=== PATIENT | female | born 1945 | race Caucasian/White ===

== ENCOUNTER 2020-11-09 16:28 | Emergency (ER) | payer MEDICARE, SELFPAY ==
[2020-11-09 16:32] VITALS: BP 103/60; PULSE 110; RESP 18; TEMP 37.1; O2SAT 93
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
[2020-11-09 17:22] LABS: Abs Immature Grans 0.03 10^3/uL (0.0-0.06); Absolute Eosinophil Count 0.05 10^3/uL (0.0-0.7); Absolute Lymphocyte Count 0.77 10^3/uL (1.2-3.4); Absolute Monocyte Count 0.49 10^3/uL (0.1-0.8); Absolute Neutrophil Count 9.07 10^3/uL (1.2-6.7); Eosinophils % 0.5; HCT 40.7 % (36.0-46.0); HGB 13.3 g/dL (11.2-15.7); Immature Grans % 0.3; Lymphocytes % 7.4; MCH 29.4 pg (27.0-33.0); MCHC 32.7 % (32.0-36.0); MCV 89.8 fL (80-95); MPV 8.8 fL (8.0-11.0); Monocytes % 4.7; Neutrophils % 87.1; Nucleated RBC 0 %; Platelet Count 270 10^3/uL (130-400); RBC 4.53 10^6/uL (3.93-5.22); RDW 12.6 % (11.7-14.6); RDW-SD 41.5 fL; WBC 10.41 10^3/uL (4.4-10.8)
[2020-11-09 17:33] LABS: ALT 40 U/L (14-59); AST 33 U/L (15-37); Albumin 3.7 g/dL (3.4-5.0); Alkaline Phosphatase 120 U/L (46-116); Anion Gap 11.4 mmol/L (3-11); BUN 15 mg/dL (7-18); Bilirubin, Total 0.9 mg/dL (0.2-1.0); CO2 27.6 mmol/L (21.0-32.0); CREATININE 1.1 mg/dL (0.55-1.02); Calcium 9.2 mg/dL (8.5-10.1); Chloride 106 mmol/L (98-107); Estimated GFR 48.16 (mL/min/1.73m2); Glucose 107 mg/dL (74-106); Potassium 3.9 mmol/L (3.5-5.1); Sodium 145 mmol/L (136-145); Total Protein 7.3 g/dL (6.4-8.2)
[2020-11-09 17:39] VITALS: BP 112/50; PULSE 77; RESP 16; TEMP 36.6; O2SAT 92
--- NOTE | 2020-11-09 17:45 | DI.CT_ITS ---
Exam(s) CT HEAD CERV SPINE FACIAL WO EXAM: CT HEAD CERV SPINE FACIAL WO CLINICAL HISTORY: right periorbital tenderness, max tenderness, BEARD,. TECHNIQUE: Imaging Protocol: Axial computed tomography images with coronal and sagittal reformatted images were created and reviewed COMPARISON: No exams were available for comparison FINDINGS: CT Head: Ventricles and Extra axial spaces: Normal in size and morphology for the patient's age. Hemorrhage: None. Cerebral parenchyma: No acute territorial infarct. Midline shift: None. Brainstem/Cerebellum: Normal. Calvarium: Normal. Visualized Paranasal sinuses/Mastoids: Clear. Soft Tissues: Unremarkable. CT Face: Facial Bones: No definite fracture is noted in facial bones. Sinuses and Mastoids: Unremarkable. Globes, extraocular muscles, optic nerves and retrobulbar fat: Normal. Upper aerodigestive tract: Normal. Mandible and bilateral temporomandibular joints: Normal. Soft tissues: There is mild right periorbital and premaxillary soft tissue swelling. There may be a small laceration in the right periorbital region laterally. Please correlate clinically. There is a rtifact from the patient's dental amalgam. CT Cervical Spine: Bones: No acute fracture or subluxation. Moderate degenerative changes are seen throughout the cervic al spine. Soft Tissues: Unremarkable. Lung Apices: Centrilobular emphysematous changes are seen in the lung apices. No evidence of an apic al pneumothorax. Thyroid gland: There is a 3 mm hypodense nodule in the right lobe of the thyroid gland. No follow-up is recommended. IMPRESSION: 1. No acute intracranial process. 2. No acute fracture or subluxation in the cervical spine. 3. No acute facial fracture. 4. Right periorbital and pre maxillary soft tissue swelling with a question of a right periorbital so ft tissue laceration laterally. RADIATION DOSE DELIVERED: 1,548.53mGy.cm Total DLP DATA REPOSITORY: All CT scans at this facility are submitted to the National Radiology Data Registry (NRDR) Dose Index Registry (DIR) with the [employer] (ACR). RADIATION OPTIMIZATION: All CT scans at this facility use at least one of these dose optimization te chniques: automated exposure control; mA and/or kV adjustment per patient size (includes targeted exa ms where dose is matched to clinical indication); or iterative reconstruction.
[2020-11-09] MEDS: Omnipaque 350 MG/ML 100 ML BTL IV (18:13)
[2020-11-09] MEDS: Normal Saline - Diluent 50 ML VIAL IV (18:15)
[2020-11-09 18:43] VITALS: BP 129/57; PULSE 67; RESP 18; TEMP 36.7; O2SAT 97
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
[2020-11-09 19:40] VITALS: BP 120/75; PULSE 85; RESP 18; TEMP 36.7; O2SAT 96
== END 2020-11-09 20:03 | disposition home or self-care (01) ==
PROVIDERS: Emergency Provider Physician Assistant
DX: S06.0X0A Concussion without loss of consciousness, initial encounter (principal); S01.111A Laceration without foreign body of right eyelid and periocular area, initial encounter; R11.0 Nausea; V86.55XA Driver of 3- or 4- wheeled all-terrain vehicle (ATV) injured in nontraffic accident, initial encounter; N83.202 Unspecified ovarian cyst, left side
CPT/HCPCS: 12011; 36415; 74177; 80053; 99285; 70450; 70486; 71260; 72125; 85025; 99282; J3490